=== PATIENT | female | born 1960 | race Caucasian/White ===

== ENCOUNTER 2018-06-28 06:52 | Emergency (ER) | payer BC ==
[~2018-06-28] VITALS: Ht 177.8 cm; Wt 106.0 kg
[2018-06-28] MEDS ORDERED: ketorolac trometh. 30mg/ml inj. IV ONE (07:30)
[2018-06-28 07:41] LABS: CLARITY,URINE CLEAR (Clear); COLOR,URINE YELLOW (Yellow); GLUCOSE, URINE NEGATIVE (Neg); KETONES,URINE NEGATIVE (Neg); LEUKOCYTE ESTERASE ,URINE NEGATIVE (Neg); NITRITES, URINE NEGATIVE (Neg); OCCULT BLOOD,URINE TRACE-INTACT (Neg); PROTEIN,URINE NEGATIVE (Neg); UROBILINOGEN,URINE 0.2 E.U/dL (0.2-1.0)
[2018-06-28 07:42] LABS: UA COLLECTION TYPE CLN CATCH MIDSTREAM; URINE HCG NEGATIVE (NEG)
[2018-06-28 07:47] LABS: BACTERIA,URINE NONE SEEN /HPF (Neg); MUCUS STRANDS NONE SEEN /LPF (Neg); RBC,URINE 0-2 /HPF (0-2); SQUAMOUS EPITHELIAL CELL,UR MODERATE /LPF (FEW); WBC,URINE 0-4 /HPF (0-4)
[2018-06-28 08:09] LABS: BASOPHILS % (AUTO) 0.3 % (0-1); EOSINOPHILS # (AUTO) 0.1 X10'3 (0-0.9); EOSINOPHILS % (AUTO) 0.6 % (0-6); HEMATOCRIT 40.8 % (35.0-45.0); HEMOGLOBIN 14.2 g/dl (12.0-16.0); LYMPHOCYTES # (AUTO) 1.9 X10'3 (1.1-4.8); LYMPHOCYTES % (AUTO) 17.4 % (21-51); MEAN CORPUSCULAR HEMOGLOBIN 33.9 PG (27.0-31.0); MEAN CORPUSCULAR HGB CONC 34.9 g/dL (33.0-36.5); MEAN CORPUSCULAR VOLUME 97.4 FL (78-98); MEAN PLATELET VOLUME 8.8 FL (7.4-10.4); MONOCYTES % (AUTO) 9.7 % (2-12); NEUTROPHILS # (AUTO) 7.7 X10'3 (1.8-7.7); PLATELET COUNT 183 X10'3 (140-440); RED BLOOD COUNT 4.19 X10'6 (4.20-5.60); RED CELL DISTRIBUTION WIDTH 13.4 % (11.5-14.5); WHITE BLOOD COUNT 10.6 X10'3 (4.5-11.0)
[2018-06-28 08:26] LABS: ALANINE AMINOTRANSFERASE 57 U/L (12-78); ALBUMIN 3.8 G/DL (3.4-5.0); ALKALINE PHOSPHATASE 91 IU/L (46-116); ANION GAP 12 (8-16); ASPARTATE AMINO TRANSFERASE 20 U/L (10-37); BILIRUBIN,TOTAL 0.7 MG/DL (0.1-1.0); BLOOD UREA NITROGEN 12 MG/DL (7-18); BUN/CREATININE RATIO 17.4 (6.6-38.0); CALCIUM 9.1 MG/DL (8.5-10.1); CHLORIDE 105 MMOL/L (99-107); CREATININE 0.69 MG/DL (0.40-0.90); GLUCOSE 105 MG/DL (70-104); LIPASE 109 U/L (73-393); POTASSIUM 3.8 MMOL/L (3.5-5.1); SODIUM 138 MMOL/L (135-145); TOTAL CARBON DIOXIDE 21.3 MMOL/L (24-32); TOTAL PROTEIN 7.6 G/DL (6.4-8.2); eGFR 87 ML/MIN
[2018-06-28] MEDS ORDERED: CIPR-230 PO (08:50)
[2018-06-28] MEDS ORDERED: METR-159 PO (08:50)
[2018-06-28] MEDS ORDERED: ACET-3067 PO (08:50)
[2018-06-28] MEDS ORDERED: ONDA4TAB12 PO (08:50)
[2018-06-28 09:19] VITALS: BP 109/61
== END 2018-06-28 09:21 | disposition home or self-care (01) ==
LOC: ER 06:53
DX: K57.92 Diverticulitis of intestine, part unspecified, without perforation or abscess without bleeding (principal); Z79.899 Other long term (current) drug therapy
CPT/HCPCS: 36415; 74176; 80053; 81001; 81025; 83690; 85025; 85610; 96374; 99284; J1885

== ENCOUNTER 2019-08-06 10:30 | Emergency (ER) | payer BC ==
[~2019-08-06] VITALS: Ht 170.2 cm; Wt 105.0 kg
[~2019-08-06 10:30] MED LIST: ONDA4TAB12 PO
[2019-08-06] MEDS ORDERED: normal saline 1000ML IV soln IV ONE (10:45)
[2019-08-06] MEDS ORDERED: acetaminophen 325mg tablet PO STA (10:50)
--- NOTE | 2019-08-06 11:56 | NUR ---
Rapid CoVID swab obtained and sent to lab.
[2019-08-06 12:36] LABS: BASOPHILS % (AUTO) 0.3 % (0-1); EOSINOPHILS % (AUTO) 0.6 % (0-6); HEMATOCRIT 39.4 % (35.0-45.0); HEMOGLOBIN 13.4 g/dl (12.0-16.0); LYMPHOCYTES # (AUTO) 1.3 X10'3 (1.1-4.8); LYMPHOCYTES % (AUTO) 16.8 % (21-51); MEAN CORPUSCULAR HEMOGLOBIN 33.5 PG (27.0-31.0); MEAN CORPUSCULAR HGB CONC 34.1 g/dL (33.0-36.5); MEAN CORPUSCULAR VOLUME 98.4 FL (78-98); MEAN PLATELET VOLUME 8.4 FL (7.4-10.4); MONOCYTES # (AUTO) 0.9 X10'3 (0-0.9); MONOCYTES % (AUTO) 11.9 % (2-12); NEUTROPHILS # (AUTO) 5.2 X10'3 (1.8-7.7); NEUTROPHILS % (AUTO) 70.4 % (42-75); PLATELET COUNT 169 X10'3 (140-440); RED CELL DISTRIBUTION WIDTH 13.3 % (11.5-14.5); WHITE BLOOD COUNT 7.4 X10'3 (4.5-11.0)
[2019-08-06 12:51] LABS: ALANINE AMINOTRANSFERASE 54 U/L (12-78); ALBUMIN 3.5 G/DL (3.4-5.0); ALBUMIN/GLOBULIN RATIO 0.9 (1.1-1.5); ALKALINE PHOSPHATASE 104 IU/L (46-116); ANION GAP 10 (8-16); ASPARTATE AMINO TRANSFERASE 37 U/L (10-37); BILIRUBIN,TOTAL 0.7 MG/DL (0.1-1.0); BLOOD UREA NITROGEN 9 MG/DL (7-18); BUN/CREATININE RATIO 10.1 (6.6-38.0); CALCIUM 9.3 MG/DL (8.5-10.1); CHLORIDE 102 MMOL/L (99-107); CREATININE 0.89 MG/DL (0.40-0.90); GLUCOSE 103 MG/DL (70-104); POTASSIUM 3.4 MMOL/L (3.5-5.1); SODIUM 137 MMOL/L (135-145); TOTAL CARBON DIOXIDE 25.5 MMOL/L (24-32); TOTAL PROTEIN 7.5 G/DL (6.4-8.2); eGFR 65 ML/MIN
--- NOTE | 2019-08-06 12:51 | NUR ---
Negative COVID result called in from [facility]. AUGUST and Kate HARRINGTON aware.
[2019-08-06 13:05] LABS: CLARITY,URINE SLIGHTLY CLOUDY (Clear); COLOR,URINE YELLOW (Yellow); GLUCOSE, URINE NEGATIVE (Neg); KETONES,URINE NEGATIVE (Neg); LEUKOCYTE ESTERASE ,URINE NEGATIVE (Neg); NITRITES, URINE NEGATIVE (Neg); OCCULT BLOOD,URINE SMALL (Neg); PH,URINE 6.5 (4.8-8.0); PROTEIN,URINE TRACE mg/dl (Neg)
[2019-08-06 13:07] LABS: UA COLLECTION TYPE CLN CATCH MIDSTREAM
--- NOTE | 2019-08-06 13:11 | NUR ---
Notified Kate HARRINGTON regarding urine being rejected for culture.
[2019-08-06 13:12] LABS: BACTERIA,URINE 1+ /HPF (Neg); MUCUS STRANDS FEW /LPF (Neg); SQUAMOUS EPITHELIAL CELL,UR MANY /LPF (FEW)
[2019-08-06 13:16] LABS: TRANSITIONAL EPI CELLS,URINE FEW /HPF
[2019-08-06] MEDS ORDERED: CEPH250T PO (13:30)
[2019-08-06 14:40] VITALS: BP 147/75
== END 2019-08-06 14:42 | disposition home or self-care (01) ==
LOC: ER 10:31
DX: N39.0 Urinary tract infection, site not specified (principal); R19.7 Diarrhea, unspecified; R05 Cough; R79.1 Abnormal coagulation profile; Z20.828 Contact with and (suspected) exposure to other viral communicable diseases; Z79.899 Other long term (current) drug therapy
CPT/HCPCS: 36415; 71045; 80053; 81001; 83605; 84145; 85025; 85610; 87040; 87635; 93005; 96360; 96361; 99285; J7030

== ENCOUNTER 2020-01-10 19:07 | Emergency (ER) | payer BC ==
[~2020-01-10] VITALS: Ht 175.3 cm; Wt 112.3 kg
[2020-01-10] MEDS ORDERED: acetaminophen 325mg tablet PO ONE (20:05)
[2020-01-10] MEDS ORDERED: normal saline 1000ML IV soln IVB ONE (20:15)
[2020-01-10 20:18] LABS: ALANINE AMINOTRANSFERASE 100 U/L (12-78); ALBUMIN 3.3 G/DL (3.4-5.0); ALBUMIN/GLOBULIN RATIO 0.9 (1.1-1.5); ALKALINE PHOSPHATASE 90 IU/L (46-116); ANION GAP 12 (8-16); ASPARTATE AMINO TRANSFERASE 91 U/L (10-37); BILIRUBIN,TOTAL 1.2 MG/DL (0.1-1.0); BLOOD UREA NITROGEN 12 MG/DL (7-18); BUN/CREATININE RATIO 10.9 (6.6-38.0); C-REACTIVE PROTEIN 17.99 MG/DL (0.0-0.5); CALCIUM 8.5 MG/DL (8.5-10.1); CHLORIDE 102 MMOL/L (99-107); GLUCOSE 142 MG/DL (70-104); POTASSIUM 3.2 MMOL/L (3.5-5.1); SODIUM 137 MMOL/L (135-145); TOTAL CARBON DIOXIDE 22.9 MMOL/L (24-32); TOTAL PROTEIN 6.8 G/DL (6.4-8.2); eGFR 51 ML/MIN
[2020-01-10 20:23] LABS: BASOPHILS % (AUTO) 0.4 % (0-1); EOSINOPHILS % (AUTO) 0.2 % (0-6); HEMATOCRIT 37.9 % (35.0-45.0); HEMOGLOBIN 13.1 g/dl (12.0-16.0); LYMPHOCYTES # (AUTO) 0.4 X10'3 (1.1-4.8); LYMPHOCYTES % (AUTO) 9.2 % (21-51); MEAN CORPUSCULAR HEMOGLOBIN 33.9 PG (27.0-31.0); MEAN CORPUSCULAR HGB CONC 34.6 g/dL (33.0-36.5); MEAN PLATELET VOLUME 8.7 FL (7.4-10.4); MONOCYTES # (AUTO) 0.2 X10'3 (0-0.9); NEUTROPHILS # (AUTO) 3.3 X10'3 (1.8-7.7); NEUTROPHILS % (AUTO) 84.2 % (42-75); PLATELET COUNT 83 X10'3 (140-440); RED BLOOD COUNT 3.87 X10'6 (4.20-5.60); RED CELL DISTRIBUTION WIDTH 13.4 % (11.5-14.5); WHITE BLOOD COUNT 3.9 X10'3 (4.5-11.0)
[2020-01-10 20:59] LABS: CLARITY,URINE SLIGHTLY CLOUDY (Clear); COLOR,URINE AMBER (Yellow); GLUCOSE, URINE NEGATIVE (Neg); KETONES,URINE 15 mg/dl (Neg); LEUKOCYTE ESTERASE ,URINE NEGATIVE (Neg); NITRITES, URINE NEGATIVE (Neg); OCCULT BLOOD,URINE TRACE-LYSED (Neg); PH,URINE 5.5 (4.8-8.0); PROTEIN,URINE 100 mg/dl (Neg)
[2020-01-10] MEDS ORDERED: potassium chloride 10mEq ER tablet PO STA (21:07)
[2020-01-10 21:12] LABS: UA COLLECTION TYPE CLN CATCH MIDSTREAM
[2020-01-10 21:16] LABS: MUCUS STRANDS MANY /LPF (Neg); RBC,URINE 0-2 /HPF (0-2); SQUAMOUS EPITHELIAL CELL,UR MODERATE /LPF (FEW); WBC,URINE 0-4 /HPF (0-4)
[2020-01-10 21:17] LABS: BACTERIA,URINE 2+ /HPF (Neg)
--- NOTE | 2020-01-10 22:00 | NUR ---
blood backflowing into tubing, iv dc'd
[2020-01-10 22:45] VITALS: BP 139/82
== END 2020-01-10 22:56 | disposition home or self-care (01) ==
LOC: ER 19:08
DX: R55 Syncope and collapse (principal); B34.9 Viral infection, unspecified; K57.92 Diverticulitis of intestine, part unspecified, without perforation or abscess without bleeding; K57.90 Diverticulosis of intestine, part unspecified, without perforation or abscess without bleeding; Z20.828 Contact with and (suspected) exposure to other viral communicable diseases
CPT/HCPCS: 36415; 80053; 81001; 85025; 86140; 87502; 87503; 87635; 93005; 96360; 99284; J7030

== ENCOUNTER 2022-12-09 07:28 | Inpatient (IN) | payer BC ==
[~2022-12-09] VITALS: Ht 167.6 cm; Wt 86.5 kg
[2022-12-09] MEDS ORDERED: diltiazem 5mg/ml 5ml inj. IV ONE ×3 (08:05→08:10)
[2022-12-09] MEDS ORDERED: normal saline 500ml IV soln 500 ML IV ONE (08:10)
[2022-12-09] MEDS ORDERED: diltiazem-NS 100mg/100ml 100 ML IV SCH ×2 (08:10→08:35)
[2022-12-09] MEDS: diltiazem-NS 100mg/100ml 100 ML IV SCH ×2 (08:20→08:31)
[2022-12-09] MEDS ORDERED: digoxin 250mcg/ml 2ml ampule IV ONE (08:20)
[2022-12-09 08:46] LABS: BASOPHILS # (AUTO) 0.1 X10'3 (0-0.2); BASOPHILS % (AUTO) 0.5 % (0-1); EOSINOPHILS # (AUTO) 0.1 X10'3 (0-0.9); EOSINOPHILS % (AUTO) 0.9 % (0-6); HEMATOCRIT 48.1 % (35.0-45.0); HEMOGLOBIN 16.5 g/dl (12.0-16.0); LYMPHOCYTES # (AUTO) 2.9 X10'3 (1.1-4.8); LYMPHOCYTES % (AUTO) 26.8 % (21-51); MEAN CORPUSCULAR HEMOGLOBIN 34.1 PG (27.0-31.0); MEAN CORPUSCULAR HGB CONC 34.3 g/dL (33.0-36.5); MEAN CORPUSCULAR VOLUME 99.5 FL (78-98); MEAN PLATELET VOLUME 9.5 FL (7.4-10.4); MONOCYTES # (AUTO) 0.4 X10'3 (0-0.9); MONOCYTES % (AUTO) 4.1 % (2-12); NEUTROPHILS # (AUTO) 7.3 X10'3 (1.8-7.7); NEUTROPHILS % (AUTO) 67.7 % (42-75); PLATELET COUNT 292 X10'3 (140-440); RED BLOOD COUNT 4.83 X10'6 (4.20-5.60); RED CELL DISTRIBUTION WIDTH 13.6 % (11.5-14.5); WHITE BLOOD COUNT 10.8 X10'3 (4.5-11.0)
[2022-12-09] MEDS ORDERED: adenosine 3mg/ml 2ml vial IV ONE (08:55)
[2022-12-09] MEDS ORDERED: normal saline 1000ML IV soln IVB ONE (08:55)
[2022-12-09 09:11] LABS: BLOOD UREA NITROGEN 14 MG/DL (7-18)
[2022-12-09 09:20] LABS: ALANINE AMINOTRANSFERASE 53 U/L (12-78); ALBUMIN 4.1 G/DL (3.4-5.0); ALBUMIN/GLOBULIN RATIO 1.1 (1.1-1.5); ALKALINE PHOSPHATASE 83 IU/L (46-116); ANION GAP 14 (8-16); ASPARTATE AMINO TRANSFERASE 31 U/L (10-37); BILIRUBIN,TOTAL 0.6 MG/DL (0.1-1.0); BUN/CREATININE RATIO 11.3 (10.0-20.0); CALCIUM 9.4 MG/DL (8.5-10.1); CHLORIDE 101 MMOL/L (99-107); CREATININE 1.24 MG/DL (0.40-0.90); GLUCOSE 209 MG/DL (70-104); PRO BRAIN NATRIURETIC PEPTIDE 679 PG/ML (0-125); SODIUM 138 MMOL/L (135-145); TOTAL CARBON DIOXIDE 22.7 MMOL/L (24-32); eCRCL 44 ML/MIN; eGFR 44 ML/MIN
[2022-12-09] MEDS ORDERED: magnesium 2GM in 50ml NS 50 ML IV PRN (10:50)
[2022-12-09] MEDS ORDERED: normal saline 1000ml 1,000 ML IV SCH (10:50)
[2022-12-09] MEDS ORDERED: acetaminophen 325mg tablet PO PRN (10:50)
[2022-12-09] MEDS ORDERED: potassium Cl 40MEQ/1/2NS 520ml 520 ML IV PRN (10:50)
[2022-12-09] MEDS ORDERED: ondansetron/PF 4mg/2ml inj IV PRN (10:50)
[2022-12-09] MEDS ORDERED: HYDROcodone/acetaminophen 5mg/325mg tablet PO PRN (10:50)
[2022-12-09] MEDS ORDERED: PERFLUTREN PROTEIN-A MICROSPHR (Optison) 0.22 MG/ML 3ML VIAL IV ONE (10:50)
[2022-12-09] MEDS ORDERED: potassium Cl 20 mEq SR tablet PO PRN ×2 (10:50)
[2022-12-09] MEDS ORDERED: HYDROmorphone inj. 0.5 MG/0.5 ML DISP.SYRIN IV PRN (10:50)
[2022-12-09] MEDS ORDERED: magnesium Cl slow-release 64mg tablet PO PRN (10:50)
[2022-12-09] MEDS ORDERED: magnesium 4gm in 100ml NS 100 ML IV PRN (10:50)
[2022-12-09 11:09] LABS: APTT 27 SECONDS (22-32); PROTHROMBIN TIME 10.3 SECONDS (9.0-12.0)
[2022-12-09 11:20] LABS: MAGNESIUM 1.9 MG/DL (1.5-2.4); THYROID STIMULATING HORMONE 0.89 ulU/ml (0.34-4.50)
[2022-12-09] MEDS: K and/or MAG REPLACEMENT MC SCH (12:04)
[2022-12-09] MEDS ORDERED: [UNRECOGNIZED DRUG - OTHER] PO (14:27)
[2022-12-09] MEDS ORDERED: [UNRECOGNIZED DRUG - OTHER] PO (14:29)
[2022-12-09] MEDS ORDERED: [UNRECOGNIZED DRUG - OTHER] PO (14:29)
[2022-12-09] MEDS ORDERED: [UNRECOGNIZED DRUG - OTHER] PO (14:30)
--- NOTE | 2022-12-09 18:33 | NUR ---
CARDIZEM DRIP RUNNING AT 5MG/HR. VERIFIED WITH INNA PALACIOS RN.
--- NOTE | 2022-12-09 22:11 | NUR ---
PATIENT RESTING IN BED WITH EYES CLOSED, RESPIRATIONS EVEN AND UNLABORED, NO ACUTE DISTRESS NOTED AT THIS TIME. CALL LIGHT WITHIN REACH.
--- NOTE | 2022-12-09 22:42 | NUR ---
TROP ORDERED PER PROTOCOL TO COMPLETE SERIES OF 3, DISCUSSED WITH CHARGE NURSE, AGREED.
--- NOTE | 2022-12-10 00:37 | NUR ---
RESTING WITH EYES CLOSED, RESPIRATIONS EVEN AND UNLABORED, NO ACUTE DISTRESS NOTED AT THIS TIME, CALL LIGHT WITHIN REACH.
[2022-12-10 04:33] LABS: BASOPHILS % (AUTO) 0.3 % (0-1); EOSINOPHILS # (AUTO) 0.1 X10'3 (0-0.9); EOSINOPHILS % (AUTO) 1.5 % (0-6); HEMATOCRIT 38.7 % (35.0-45.0); HEMOGLOBIN 13.6 g/dl (12.0-16.0); LYMPHOCYTES # (AUTO) 2.2 X10'3 (1.1-4.8); LYMPHOCYTES % (AUTO) 34.4 % (21-51); MEAN CORPUSCULAR HEMOGLOBIN 34.4 PG (27.0-31.0); MEAN CORPUSCULAR HGB CONC 35.1 g/dL (33.0-36.5); MEAN CORPUSCULAR VOLUME 97.9 FL (78-98); MEAN PLATELET VOLUME 8.5 FL (7.4-10.4); MONOCYTES # (AUTO) 0.6 X10'3 (0-0.9); MONOCYTES % (AUTO) 8.8 % (2-12); NEUTROPHILS # (AUTO) 3.6 X10'3 (1.8-7.7); PLATELET COUNT 191 X10'3 (140-440); RED BLOOD COUNT 3.95 X10'6 (4.20-5.60); RED CELL DISTRIBUTION WIDTH 13.5 % (11.5-14.5); WHITE BLOOD COUNT 6.5 X10'3 (4.5-11.0)
[2022-12-10 04:41] LABS: ALBUMIN 3.4 G/DL (3.4-5.0); ANION GAP 8 (8-16); BLOOD UREA NITROGEN 15 MG/DL (7-18); BUN/CREATININE RATIO 20.8 (10.0-20.0); CALCIUM 8.5 MG/DL (8.5-10.1); CHLORIDE 106 MMOL/L (99-107); CREATININE 0.72 MG/DL (0.40-0.90); GLUCOSE 131 MG/DL (70-104); MAGNESIUM 1.8 MG/DL (1.5-2.4); POTASSIUM 3.8 MMOL/L (3.5-5.1); SODIUM 139 MMOL/L (135-145); TOTAL CARBON DIOXIDE 25.1 MMOL/L (24-32); eCRCL 76 ML/MIN; eGFR 82 ML/MIN
--- NOTE | 2022-12-10 05:52 | NUR ---
C. DIFF SAMPLE LAB CANCEL, TOO FORMED UNACCEPTABLE SAMPLE. RN AND PROVIDER NOTIFIED.
--- NOTE | 2022-12-10 05:58 | NUR ---
PATIENT RESTING IN BED, RESPIRATIONS EVEN AND UNLABORED, NO ACUTE DISTRESS NOTED AT THIS TIME, CALL LIGHT WITHIN REACH. IV MEDICATIONS INFUSING WELL, NO SIGNS OF INFLITRATION NOTED AT THIS TIME.
--- NOTE | 2022-12-10 06:45 | NUR ---
RECEIVED REPORT, ASSUMED PT CAR. PT ON CPAP. PT IN IN NAD
[2022-12-10] MEDS: K and/or MAG REPLACEMENT MC SCH (07:10)
--- NOTE | 2022-12-10 08:00 | NUR ---
RT CHECKING ON PT AND ADJUSTING CPAP FOR COMFORT.
--- NOTE | 2022-12-10 09:14 | NUR ---
PT ATE 90% OF BREAKFAST MEAL AND WAS MOVED UP IN BED FOR COMFORT.
[2022-12-10] MEDS ORDERED: diltiazem CD 120mg capsule (once-daily) PO SCH (11:55)
[2022-12-10] MEDS ORDERED: DILT-36 PO (11:56)
--- NOTE | 2022-12-10 12:26 | NUR ---
new plan of care disucussed w pt all questions and concerns addressed to pt's verbal satisfaction dilt gtt dc'd po dilt 120mg po admin report called to [facility] Donna RN receiving nsg
--- NOTE | 2022-12-10 12:28 | NUR ---
Report received from Debbie RN; awaiting pt's arrival.
[2022-12-10 13:15] VITALS: BP 138/75; PULSE 84; RESP 14; RESP 16; TEMP 97.8; O2SAT 96
--- NOTE | 2022-12-10 13:20 | NUR ---
Lunch arrived from ER and was given to pt. Pt's went to get lunch also. Pt remains in SR.
[2022-12-10 15:00] VITALS: BP 142/64; PULSE 82; RESP 12; TEMP 97.8; O2SAT 97
[2022-12-10] MEDS ORDERED: APIX5TAB3 PO (15:06)
--- NOTE | 2022-12-10 18:10 | NUR ---
SL x 2 removed w/ catheters intact. Tele dc'd and pt DC'd home w/ via WC.
[2022-12-10] MEDS ORDERED: apixaban 5mg tablet PO SCH (20:00)
== END 2022-12-10 18:10 | disposition home or self-care (01) | DRG 281 ==
LOC: ER 07:29 → ED HOLD 13:48 → EDBEDREQ 20:00 → ED HOLD 21:51 → PCU 3S 12-10 12:40
PROVIDERS: ADMIT Internal Medicine; ATTEND Internal Medicine
DX: I48.91 Unspecified atrial fibrillation (principal); I21.A1 Myocardial infarction type 2; N17.9 Acute kidney failure, unspecified; M10.9 Gout, unspecified; K57.90 Diverticulosis of intestine, part unspecified, without perforation or abscess without bleeding; N18.9 Chronic kidney disease, unspecified; Z20.822 Contact with and (suspected) exposure to COVID-19
CPT/HCPCS: 36415; 71045; 80048; 80053; 83735; 83880; 84443; 84484; 85025; 85379; 85610; 85730; 87324; 87449; 87811; 93005; 93306; 96365; 96375; 96376; 99285; G0378; J0153; J1160; J3490; J7030

== ENCOUNTER 2023-09-19 23:49 | Inpatient (IN) | payer BC ==
[~2023-09-19] VITALS: Ht 175.3 cm; Wt 113.6 kg
[~2023-09-19 23:49] MED LIST changes: +APIX5TAB3 PO; +DILT-36 PO; -ONDA4TAB12 PO; +[UNRECOGNIZED DRUG - OTHER] PO; +[UNRECOGNIZED DRUG - OTHER] PO; +[UNRECOGNIZED DRUG - OTHER] PO; +[UNRECOGNIZED DRUG - OTHER] PO
[2023-09-20] VITALS (17 sets, daily range): BP systolic 135–192; BP diastolic 69–111; PULSE 67–155; RESP 11–20; TEMP 97–97.9; O2SAT 87–100
[2023-09-20] MEDS: diltiazem 5mg/ml 5ml inj. IV ONE (00:19)
[2023-09-20 00:33] LABS: BASOPHILS % (AUTO) 0.5 % (0-1); EOSINOPHILS # (AUTO) 0.2 X10'3 (0-0.9); EOSINOPHILS % (AUTO) 2.8 % (0-6); HEMATOCRIT 43.7 % (35.0-45.0); HEMOGLOBIN 15.2 g/dl (12.0-16.0); LYMPHOCYTES % (AUTO) 32.7 % (21-51); MEAN CORPUSCULAR HEMOGLOBIN 34.3 PG (27.0-31.0); MEAN CORPUSCULAR HGB CONC 34.7 g/dL (33.0-36.5); MEAN CORPUSCULAR VOLUME 98.8 FL (78-98); MEAN PLATELET VOLUME 9.1 FL (7.4-10.4); MONOCYTES # (AUTO) 0.8 X10'3 (0-0.9); MONOCYTES % (AUTO) 13.3 % (2-12); NEUTROPHILS # (AUTO) 3.1 X10'3 (1.8-7.7); NEUTROPHILS % (AUTO) 50.7 % (42-75); PLATELET COUNT 144 X10'3 (140-440); RED BLOOD COUNT 4.42 X10'6 (4.20-5.60); RED CELL DISTRIBUTION WIDTH 13.6 % (11.5-14.5); WHITE BLOOD COUNT 6.2 X10'3 (4.5-11.0)
[2023-09-20 00:49] LABS: ALBUMIN 3.9 G/DL (3.4-5.0); ANION GAP 13 (8-16); BLOOD UREA NITROGEN 23 MG/DL (7-18); BUN/CREATININE RATIO 24.5 (10.0-20.0); CALCIUM 9.4 MG/DL (8.5-10.1); CHLORIDE 105 MMOL/L (99-107); CREATININE 0.94 MG/DL (0.40-0.90); GLUCOSE 170 MG/DL (70-104); POTASSIUM 3.6 MMOL/L (3.5-5.1); PRO BRAIN NATRIURETIC PEPTIDE 70 PG/ML (0-125); SODIUM 141 MMOL/L (135-145); TOTAL CARBON DIOXIDE 22.8 MMOL/L (24-32); eCRCL 64 ML/MIN; eGFR 60 ML/MIN
[2023-09-20] MEDS: etomidate 2mg/ml inj. IV ONE (01:04)
[2023-09-20] MEDS: fentaNYL/PF 50MCG/1 ML 2ML syringe IV ONE (01:06)
[2023-09-20] MEDS: amiodarone 150mg/dext, iso-os 100 ML IV ONE (01:36)
[2023-09-20] MEDS: amiodarone/D5 360MG/200ML BAG 200 ML IV SCH (01:51)
[2023-09-20] MEDS ORDERED: ondansetron/PF 4mg/2ml inj IV PRN (03:20)
[2023-09-20] MEDS ORDERED: magnesium sulf-water 2g/50mL 50 ML IV PRN (03:20)
[2023-09-20] MEDS ORDERED: acetaminophen 325mg tablet PO PRN ×2 (03:20)
[2023-09-20] MEDS ORDERED: potassium Cl 40MEQ/1/2NS 520ml 520 ML IV PRN (03:20)
[2023-09-20] MEDS ORDERED: magnesium hydroxide 30ml (MOM) UD suspension PO PRN (03:20)
[2023-09-20] MEDS ORDERED: mag hydrox/Alum hydrox/simeth 30ml oral suspension PO PRN (03:20)
[2023-09-20] MEDS ORDERED: magnesium sulf-water 4G/100mL 100 ML IV PRN (03:20)
[2023-09-20] MEDS ORDERED: magnesium Cl slow-release 64mg tablet PO PRN (03:20)
[2023-09-20] MEDS ORDERED: potassium Cl 20 mEq SR tablet PO PRN ×2 (03:20)
[2023-09-20 04:55] LABS: BILIRUBIN,URINE NEGATIVE (Neg); CLARITY,URINE SLIGHTLY CLOUDY (Clear); COLOR,URINE YELLOW (Yellow); GLUCOSE, URINE NEGATIVE (Neg); KETONES,URINE NEGATIVE (Neg); LEUKOCYTE ESTERASE ,URINE SMALL (Neg); NITRITES, URINE NEGATIVE (Neg); OCCULT BLOOD,URINE NEGATIVE (Neg); PROTEIN,URINE TRACE mg/dl (Neg); UROBILINOGEN,URINE 0.2 E.U/dL (0.2-1.0)
[2023-09-20 04:56] LABS: UA COLLECTION TYPE NON-SPECIFIED
[2023-09-20 05:01] LABS: SQUAMOUS EPITHELIAL CELL,UR MANY /LPF (FEW); TRANSITIONAL EPI CELLS,URINE FEW /HPF; WBC,URINE 20-30 /HPF (0-4)
[2023-09-20 05:02] LABS: BACTERIA,URINE FEW /HPF (Neg); RBC,URINE 0-2 /HPF (0-2); WBC CLUMPS,URINE FEW /HPF (NEGATIVE)
[2023-09-20 05:14] LABS: URINE AMPHETAMINE SCREEN NEGATIVE (Neg); URINE BARBITUATE SCREEN NEGATIVE (Neg); URINE BENZODIAZEPINES SCREEN NEGATIVE (Neg); URINE CANNABINOID SCREEN POSITIVE (Neg); URINE COCAINE SCREEN NEGATIVE (Neg); URINE METHADONE SCREEN NEGATIVE (Neg); URINE OPIATE SCREEN NEGATIVE (Neg); URINE PHENCYCLIDINE SCREEN NEGATIVE (Neg)
[2023-09-20 06:44] LABS: HEMOGLOBIN A1C 5.9 % (4.5-6.2)
[2023-09-20 06:59] LABS: CHOL/HDL RATIO 4.3 (0.00-4.99); CHOLESTEROL 181 MG/DL (0-200); FREE T4 (FREE THYROXINE) 0.74 NG/DL (0.73-1.40); HDL CHOLESTEROL 42 MG/DL (35-60); LDL CHOLESTEROL 111 MG/DL (50-100); POTASSIUM 3.8 MMOL/L (3.5-5.1); THYROID STIMULATING HORMONE 1.04 ulU/ml (0.34-4.50); TRIGLYCERIDES 130 MG/DL (20-135)
[2023-09-20] MEDS: apixaban 5mg tablet PO SCH (07:44)
[2023-09-20] MEDS: potassium Cl 20 mEq SR tablet PO STA (07:45)
[2023-09-20] MEDS: K and/or MAG REPLACEMENT MC SCH (08:00)
[2023-09-20 08:58] LABS: ALANINE AMINOTRANSFERASE 49 U/L (12-78); ALBUMIN 3.5 G/DL (3.4-5.0); ALBUMIN/GLOBULIN RATIO 1.1 (1.1-1.5); ALKALINE PHOSPHATASE 62 IU/L (46-116); ANION GAP 12 (8-16); ASPARTATE AMINO TRANSFERASE 26 U/L (10-37); BILIRUBIN,TOTAL 0.4 MG/DL (0.1-1.0); BLOOD UREA NITROGEN 18 MG/DL (7-18); BUN/CREATININE RATIO 26.9 (10.0-20.0); CALCIUM 9.1 MG/DL (8.5-10.1); CHLORIDE 107 MMOL/L (99-107); CREATININE 0.67 MG/DL (0.40-0.90); GLUCOSE 129 MG/DL (70-104); SODIUM 140 MMOL/L (135-145); TOTAL CARBON DIOXIDE 21.4 MMOL/L (24-32); TOTAL PROTEIN 6.8 G/DL (6.4-8.2); eCRCL 90 ML/MIN; eGFR 89 ML/MIN
[2023-09-20] MEDS: ALPRAZolam 0.25mg tablet PO PRN (14:20)
[2023-09-20] MEDS: diltiazem CD 180mg cap (once-daily) PO SCH (15:07)
[2023-09-20] MEDS: lisinopril 10 MG tablet PO SCH (17:03)
[2023-09-20] MEDS: HYDROchlorothiazide 12.5mg capsule PO SCH (17:04)
[2023-09-20] MEDS ORDERED: apixaban 5mg tablet PO SCH (20:00)
[2023-09-20] MEDS ORDERED: LORazepam 1 MG tablet PO PRN (20:30)
[2023-09-20] MEDS: folic acid 1mg tablet PO SCH (20:57)
[2023-09-20] MEDS: multivitamins, therapeutics tablet PO SCH (20:57)
[2023-09-20] MEDS: thiamine 100mg tablet PO SCH (20:57)
[2023-09-21 02:00] VITALS: BP 138/80; PULSE 91; RESP 18; TEMP 97.5; O2SAT 97
[2023-09-21] MEDS: hydrALAZINE 25 MG tablet PO PRN (02:04)
[2023-09-21] MEDS: LORazepam 2 mg/ml vial IV PRN (02:04)
[2023-09-21 06:00] VITALS: BP 126/68; PULSE 84; RESP 16; TEMP 97.6; O2SAT 97
[2023-09-21 06:46] LABS: BASOPHILS % (AUTO) 0.4 % (0-1); EOSINOPHILS # (AUTO) 0.1 X10'3 (0-0.9); EOSINOPHILS % (AUTO) 2.7 % (0-6); HEMATOCRIT 41.9 % (35.0-45.0); HEMOGLOBIN 14.5 g/dl (12.0-16.0); LYMPHOCYTES # (AUTO) 1.4 X10'3 (1.1-4.8); LYMPHOCYTES % (AUTO) 26.4 % (21-51); MEAN CORPUSCULAR HEMOGLOBIN 34.4 PG (27.0-31.0); MEAN CORPUSCULAR HGB CONC 34.5 g/dL (33.0-36.5); MEAN CORPUSCULAR VOLUME 99.6 FL (78-98); MEAN PLATELET VOLUME 8.6 FL (7.4-10.4); MONOCYTES # (AUTO) 0.6 X10'3 (0-0.9); MONOCYTES % (AUTO) 10.5 % (2-12); NEUTROPHILS # (AUTO) 3.3 X10'3 (1.8-7.7); PLATELET COUNT 127 X10'3 (140-440); RED CELL DISTRIBUTION WIDTH 13.4 % (11.5-14.5); WHITE BLOOD COUNT 5.5 X10'3 (4.5-11.0)
[2023-09-21 06:58] LABS: APTT 27 SECONDS (22-32); PROTHROMBIN TIME 10.6 SECONDS (9.0-12.0)
[2023-09-21 07:05] LABS: ALANINE AMINOTRANSFERASE 51 U/L (12-78); ALBUMIN 3.5 G/DL (3.4-5.0); ALBUMIN/GLOBULIN RATIO 1.1 (1.1-1.5); ALKALINE PHOSPHATASE 63 IU/L (46-116); ANION GAP 9 (8-16); ASPARTATE AMINO TRANSFERASE 23 U/L (10-37); BILIRUBIN,TOTAL 0.5 MG/DL (0.1-1.0); BLOOD UREA NITROGEN 11 MG/DL (7-18); BUN/CREATININE RATIO 18.3 (10.0-20.0); CALCIUM 9.3 MG/DL (8.5-10.1); CHLORIDE 106 MMOL/L (99-107); GLUCOSE 140 MG/DL (70-104); LIPASE 34 U/L (16-77); MAGNESIUM 1.9 MG/DL (1.5-2.4); PHOSPHORUS 4.4 MG/DL (2.3-4.5); POTASSIUM 3.9 MMOL/L (3.5-5.1); SODIUM 139 MMOL/L (135-145); TOTAL CARBON DIOXIDE 24.1 MMOL/L (24-32); TOTAL PROTEIN 6.8 G/DL (6.4-8.2); eCRCL 100 ML/MIN; eGFR > 90 ML/MIN
[2023-09-21] MEDS ORDERED: diltiazem CD 180mg cap (once-daily) PO SCH (08:00)
[2023-09-21] MEDS ORDERED: LISI10TA27 PO (10:24)
[2023-09-21] MEDS ORDERED: thiamine tablet PO (10:24)
[2023-09-21] MEDS ORDERED: MULT-25 PO (10:24)
[2023-09-21] MEDS ORDERED: FOLI1TAB27 PO (10:24)
[2023-09-21] MEDS ORDERED: HYDR25TA5 PO (10:25)
[2023-09-21 11:00] VITALS: BP 132/66; PULSE 83; RESP 16; TEMP 97.6; O2SAT 97
== END 2023-09-21 12:15 | disposition home or self-care (01) | DRG 310 ==
LOC: ER 23:50 → ED HOLD 09-20 03:25 → EDBEDREQ 09-20 03:48 → PCU 3S 09-20 04:15
PROVIDERS: ADMIT Internal Medicine Critical Care Medicine; ATTEND Internal Medicine
PROC: 5A2204Z Restoration of Cardiac Rhythm, Single (ICD-10-PCS; principal; 2023-09-20)
DX: I48.0 Paroxysmal atrial fibrillation (principal); I12.9 Hypertensive chronic kidney disease with stage 1 through stage 4 chronic kidney disease, or unspecified chronic kidney disease; N18.9 Chronic kidney disease, unspecified; F10.20 Alcohol dependence, uncomplicated; G47.33 Obstructive sleep apnea (adult) (pediatric); F41.9 Anxiety disorder, unspecified; Z79.01 Long term (current) use of anticoagulants; Z79.899 Other long term (current) drug therapy
CPT/HCPCS: 36415; 71045; 80048; 80053; 80061; 80305; 81001; 83036; 83690; 83735; 83880; 84100; 84439; 84443; 84484; 85025; 85610; 85730; 87081; 93005; 93306; 99291; A4620; G0378; J0282; J2060; J3010; J3490; J7040

== ENCOUNTER 2023-11-29 05:14 | Emergency (ER) | payer BC ==
[~2023-11-29] VITALS: Ht 175.3 cm; Wt 117.8 kg
[~2023-11-29 05:14] MED LIST changes: +FOLI1TAB27 PO; +HYDR25TA5 PO; +LISI10TA27 PO; +MULT-25 PO; +thiamine tablet PO
[2023-11-29 05:48] LABS: BASOPHILS % (AUTO) 0.3 % (0-1); EOSINOPHILS # (AUTO) 0.1 X10'3 (0-0.9); EOSINOPHILS % (AUTO) 1.1 % (0-6); HEMATOCRIT 44.6 % (35.0-45.0); HEMOGLOBIN 15.3 g/dl (12.0-16.0); LYMPHOCYTES # (AUTO) 2.2 X10'3 (1.1-4.8); LYMPHOCYTES % (AUTO) 30.4 % (21-51); MEAN CORPUSCULAR HGB CONC 34.3 g/dL (33.0-36.5); MEAN CORPUSCULAR VOLUME 99.3 FL (78-98); MEAN PLATELET VOLUME 8.7 FL (7.4-10.4); MONOCYTES # (AUTO) 0.7 X10'3 (0-0.9); MONOCYTES % (AUTO) 10.2 % (2-12); NEUTROPHILS # (AUTO) 4.3 X10'3 (1.8-7.7); PLATELET COUNT 222 X10'3 (140-440); RED CELL DISTRIBUTION WIDTH 13.7 % (11.5-14.5); WHITE BLOOD COUNT 7.3 X10'3 (4.5-11.0)
[2023-11-29] MEDS: diltiazem 5mg/ml 5ml inj. IV ONE ×3 (06:01→07:54)
[2023-11-29 06:02] LABS: ALANINE AMINOTRANSFERASE 50 U/L (12-78); ALBUMIN 4.2 G/DL (3.4-5.0); ALBUMIN/GLOBULIN RATIO 1.2 (1.1-1.5); ALKALINE PHOSPHATASE 73 IU/L (46-116); ANION GAP 10 (8-16); ASPARTATE AMINO TRANSFERASE 24 U/L (10-37); BILIRUBIN,TOTAL 0.5 MG/DL (0.1-1.0); BLOOD UREA NITROGEN 17 MG/DL (7-18); BUN/CREATININE RATIO 28.3 (10.0-20.0); CALCIUM 9.7 MG/DL (8.5-10.1); CHLORIDE 107 MMOL/L (99-107); GLUCOSE 137 MG/DL (70-104); POTASSIUM 3.6 MMOL/L (3.5-5.1); SODIUM 141 MMOL/L (135-145); TOTAL PROTEIN 7.6 G/DL (6.4-8.2); eCRCL 100 ML/MIN; eGFR > 90 ML/MIN
[2023-11-29] MEDS: normal saline 1000ml 1,000 ML IV ONE (06:02)
[2023-11-29 06:10] LABS: PRO BRAIN NATRIURETIC PEPTIDE 172 PG/ML (0-125)
[2023-11-29] MEDS: magnesium sulf-water 2g/50mL 50 ML IV ONE (06:31)
[2023-11-29] MEDS: sotalol 80mg tablet PO STA (06:44)
[2023-11-29] MEDS: potassium Cl 20 mEq SR tablet PO STA (07:17)
[2023-11-29] MEDS: normal saline 1000ML IV soln IVB ONE ×2 (07:17→07:18)
[2023-11-29] MEDS: etomidate 2mg/ml inj. IV ONE (09:18)
[2023-11-29 09:33] VITALS: BP 135/81; PULSE 62; RESP 16; TEMP 97.7; O2SAT 98
== END 2023-11-29 09:36 | disposition home or self-care (01) ==
LOC: ER 05:15
DX: R00.2 Palpitations (principal); R00.0 Tachycardia, unspecified; I48.91 Unspecified atrial fibrillation; F12.90 Cannabis use, unspecified, uncomplicated; G47.30 Sleep apnea, unspecified; Z79.899 Other long term (current) drug therapy
CPT/HCPCS: 36415; 71045; 80053; 83880; 84484; 85025; 93005; 96361; 96374; 96375; 96376; 99285; J3490; J7030; A4620

== ENCOUNTER 2024-04-03 18:15 | Emergency (ER) | payer BC ==
[~2024-04-03] VITALS: Ht 175.3 cm; Wt 99.0 kg
[2024-04-03 20:35] VITALS: BP 150/60; PULSE 65; RESP 16; TEMP 98.2; O2SAT 97
== END 2024-04-03 21:46 | disposition home or self-care (01) ==
LOC: ER 18:16
DX: M79.661 Pain in right lower leg (principal); I48.91 Unspecified atrial fibrillation; G47.30 Sleep apnea, unspecified; F12.90 Cannabis use, unspecified, uncomplicated
CPT/HCPCS: 93971; 99284